=== PATIENT | male | born 1970 | race Caucasian/White ===

== ENCOUNTER 2021-03-01 09:58 | Outpatient (REF) | payer OTHER, SELFPAY ==
--- NOTE | ~2021-03-01 | CT_ITS ---
EXAMINATION: CT HEAD WITHOUT CONTRAST CLINICAL INFORMATION: Unspecified intracranial injury with loss of consciousness COMPARISON: None TECHNIQUE: Contiguous axial imaging was performed from the skull base to vertex without intravenous administration of contrast. This CT examination was performed using dose optimization techniques as appropriate, variously including the following: *Automated exposure control *Adjustment of mA and/or kV according to patient size (this includes techniques or standardized protocols for targeted exams where dose is matched to indication/reason for exam; i.e. extremities or head) *Use of iterative reconstruction technique DLP: 805 mGy-cm FINDINGS: There is no evidence of an extra-axial collection. There are 2 small areas of increased attenuation in the periventricular white matter of the left frontal lobe near the frontal horn of the left lateral ventricle measuring 2 mm axial image 32 and 3 mm axial image 39 series 4. Appearance is questionable for possible small areas of intraparenchymal hemorrhage. No other evidence of intra-axial or extra-axial hemorrhage is seen. The ventricles and extra-axial CSF spaces are appropriate. Mclaughlin-white matter differentiation is normal and no mass, mass effect or infarct is seen. Review at bone windows demonstrates no skull fracture. There are mild inflammatory changes seen in the left frontal, ethmoid and sphenoid sinuses. CT/CT head/brain wo con IMPRESSION: Two small 2 and 3 mm foci of increased attenuation in the periventricular white matter of the left frontal lobe questionable for small areas of intraparenchymal hemorrhage. This finding could be confirmed with brain MRI clinically indicated. Alternatively, short-term follow-up head CT could be considered. Findings will be communicated by the [facility] work flow mental health social worker Josephine Nagel.
== END 2021-03-01 09:59 | disposition home or self-care (01) ==
LOC: HO.CT 09:58
PROVIDERS: PCP Nurse Practitioner Family; Visit Provider Nurse Practitioner Family
DX: S06.9X9A Unspecified intracranial injury with loss of consciousness of unspecified duration, initial encounter (principal)
CPT/HCPCS: 70450

== ENCOUNTER → 2021-05-08 09:34 | Outpatient (REF) | payer OTHER, SELFPAY ==
--- NOTE | 2021-05-08 09:43 | CA_ITS ---
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 Symptoms: R01.1 - Cardiac murmur, unspecified Study Quality: Fair ECG Rhythm: Sinus Conclusions: - The left ventricular systolic function is normal. The calculated ejection fraction is 60% by biplane method. - Possibly bicuspid aortic valve with fusion of left and right cusps. - There is moderate aortic valve stenosis. Findings Left Ventricle Normal left ventricular cavity size. There is mildly increased left ventricular wall thickness. The left ventricular systolic function is normal. The calculated ejection fraction is 60% by biplane method. There is no evidence of regional wall motion abnormalities. Diastolic function is normal for age. Right Ventricle Normal right ventricular cavity size and systolic function. Atria The left atrium is mildly dilated. The right atrium is normal in size. Aortic Valve There is moderate calcification of the aortic valve. There is moderate aortic valve stenosis. The peak aortic gradient is 57 mmHg.The mean gradient is 29 mmHg. The aortic valve area is 1.26 cm2. Possibly bicuspid aortic valve with fusion of left and right cusps. Mitral Valve The mitral valve appears normal. There is trace mitral valve regurgitation. There is no mitral valve stenosis. Pulmonic Valve The pulmonic valve was not well visualized. Tricuspid Valve Normal tricuspid valve structure. There is trace tricuspid valve regurgitation. The pulmonary artery systolic pressure is normal. Great Vessels The aortic annulus, sinuses of valsalva, and asc aorta are normal in size. Venous The inferior vena cava is normal in size and collapses greater than 50% with inspiration. Pericardium/Pleural There is no evidence of pericardial effusion. Prior Study Comparison No prior study available for comparison. Measurements 2D Linear Measurements IVSd: 1.11 0.6-0.9/0.6-1.0 cm LVIDd: 4.80 3.9-5.3/4.2-5.9 cm LVIDd Index: 2.33 2.4-3.2/2.2-3.1 cm/m2 LVIDs: 2.86 2.0-3.6 cm LVPWd: 1.07 0.7-1.1 cm Ao Root: 3.60 2.1-3.5 cm LA Diam: 3.60 2.7-3.8/3.0-4.0 cm LAIDs Index: 1.75 1.5-2.3 cm/m2 LV Mass: 238.66 67-162/88-224 g LV Mass Index: 115.85 43-95/49-115 g/m2 LVOT Diam: 2.30 3.0+(-)1.3 cm 2D Systolic Function EF 4C: 60.80 >55% EF 2C: 59.10 >55% EF BiP: 59.70 >55% Mitral Valve MV Pk E: 0.71 MV PK A: 0.79 MV Decel Time: 196.00 E/A: 0.90 E'Lateral: 7.83 E'Medial: 9.25 E/E' Med: 7.60 E/E' Lat: 9.00 PHT: 57.00 MVA PHT: 3.86 Decel Throckmorton: 3.61 Aortic Valve AoV Pk Jeremy: 3.79 AoV Mn Jeremy: 2.53 AoV VTI: 0.83 AoV Pk Grad: 57.00 Aov Mn Grad: 29.00 ALMA Cont.VTI: 1.26 LVOT LVOT Pk Jeremy: 1.04 LVOT Mn Jeremy: 0.73 LVOT VTI: 0.25 LVOT Pk Grad: 4.00 LVOT Mn Grad: 3.00 LVOT Diam: 2.30 LVOT Area: 4.15 Diastolic Function MV Pk E: 0.71 MV Pk A: 0.79 E/A: 0.90 E'Medial: 9.25 E/E' Med: 7.60 E' Laterial: 7.83 E/E' Lat: 9.00 Right Ventricle TAPSE (mm): 23.00 TVS' Jeremy: 13.40 Tricuspid Valve TR Pk Jeremy: 1.52 TR Pk Grad: 9.00 RA Press: 3.00 RVSP: 12.00 Great Vessels Aorta Ao Root-2D: 3.60 2.0-3.7 cm Ao Asc: 3.30 2.1-3.4 cm Ao Arch: 3.00 Updated in Other Vendor System with Status of Final Morales Bolden MD electronically signed on 05/08/2021 12:55:09 PM with status of Final
== END ==
LOC: HO.CARD 09:34
PROVIDERS: PCP Nurse Practitioner Family; Visit Provider Nurse Practitioner Family
DX: R01.1 Cardiac murmur, unspecified (principal)
CPT/HCPCS: 93306

== ENCOUNTER 2021-05-22 10:19 | Outpatient (REF) | payer OTHER, SELFPAY ==
--- NOTE | ~2021-05-22 | CT_ITS ---
EXAMINATION: CT HEAD WITHOUT CONTRAST CLINICAL INFORMATION: Unspecified fracture of the occiput. COMPARISON: CT brain 03/01/2021. TECHNIQUE: Contiguous axial imaging was performed from the skull base to vertex without intravenous administration of contrast. This CT examination was performed using dose optimization techniques as appropriate, variously including the following: *Automated exposure control *Adjustment of mA and/or kV according to patient size (this includes techniques or standardized protocols for targeted exams where dose is matched to indication/reason for exam; i.e. extremities or head) *Use of iterative reconstruction technique DLP: 715 mGy-cm FINDINGS: There is no evidence of acute intracranial hemorrhage or territorial infarction. No abnormal mass effect or midline shift is seen. There are 2 punctate calcifications in the left deep frontal lobe measuring 3 mm axial image 111/5 and 3 mm on axial image 134/5 adjacent to the frontal horn of left lateral ventricle. Mclaughlin to white matter differentiation is well preserved. No extra-axial fluid collections are identified. The ventricles are normal in size. There is no abnormal attenuation within the brain parenchyma. The osseous structures and soft tissues are normal. The mastoid air cells and visualized portions of the paranasal sinuses are well aerated. CT/CT head/brain wo con IMPRESSION: No acute intracranial process seen. No major change from previous exam 03/02/2021.
== END 2021-05-22 10:20 | disposition home or self-care (01) ==
LOC: HO.CT 10:19
PROVIDERS: PCP Nurse Practitioner Family; Visit Provider Nurse Practitioner Family
DX: S06.9X9A Unspecified intracranial injury with loss of consciousness of unspecified duration, initial encounter (principal); S02.119A Unspecified fracture of occiput, initial encounter for closed fracture
CPT/HCPCS: 70450

== ENCOUNTER → 2021-07-11 08:42 | Outpatient (BNVA) | payer OTHER, SELFPAY | PROVIDERS: PCP Nurse Practitioner Family; Referring Provider Nurse Practitioner Family; Visit Provider Internal Medicine Cardiovascular Disease | DX: I35.0 Nonrheumatic aortic (valve) stenosis (principal) | CPT/HCPCS: 93005 ==

== ENCOUNTER 2022-11-19 10:51 | Outpatient (AMB) | payer OTHER, SELFPAY ==
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
[2022-11-19 11:02] VITALS: BP 122/62; PULSE 68; O2SAT 98; BMI 34.1
== END 2022-11-19 11:37 | disposition home or self-care (01) ==
PROVIDERS: Visit Provider Psychiatry & Neurology Neurology
DX: G44.309 Post-traumatic headache, unspecified, not intractable (principal); S09.90XS Unspecified injury of head, sequela; R06.83 Snoring; F32.A Depression, unspecified; M54.2 Cervicalgia; G47.10 Hypersomnia, unspecified
CPT/HCPCS: 99204

== ENCOUNTER → 2022-11-19 10:51 | Outpatient (BNVA) | payer OTHER, SELFPAY | PROVIDERS: Visit Provider Psychiatry & Neurology Neurology ==

== ENCOUNTER 2023-01-28 08:33 | Outpatient (AMB) | payer OTHER, SELFPAY ==
--- NOTE | 2023-01-28 08:36 | MHC.PC.OV ---
Vital Signs 01/28/23 08:37 Height 5 ft 7 in Weight 228 lb 4 oz BMI 35.7 BP 120/82 Blood Pressure Location Rt brachial Position Sitting Pulse 68 Pulse Source Pulse Oximeter Pulse Oximetry (%) 98 Oxygen Delivery Method Room Air Intake Visit Reasons: 6 month follow up concussion Allergies No Known Allergies Allergy (Verified 01/28/23 08:39) Medication List - Last Reconciled 01/28/23 by VINNIE Gaytan aspirin (Ecotrin Low Strength) 81 mg PO DAILY baclofen 5 mg PO BEDTIME magnesium oxide 400 mg PO BEDTIME sildenafil 50 mg PO DAILY PRN 10 days Tobacco use date assessed: 01/28/23 Dental Screening Dental Screen Date: 01/28/23 Did you have a dental visit in the last 12 months?: Yes Did you have a dental problem in the last 6 months where you did not have access to dental care?: No Was dental information given to patient?: Patient has dentist HPI 6 month follow up concussion HPI Details TBI (Jan 2021). headaches, left occipital/paretial region. Headaches are very random, denies any aura, reports lasting half hr or so. He further reports memory loss, photophobia, and sonophobia. Pt is currently seeing a neurologist. I will refer for neuro-psych testing for further eval and possible treatment. Pt reports a skin lesion to his right calf and left occipital region. Will refer to derm. Denies fever, chills, and blurred vision. 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 Hypersomnia Snoring Cervicalgia Concussion Fracture of occipital bone of skull with loss of consciousness Subarachnoid bleed Hypertension Family History Mother Cancer Father HTN (hypertension) Social History Housing: House Alcohol intake: current Patient Tobacco Use Status: Former Tobacco user Years Smoked: 20 e-Cigarette/Vaping Use: Never Used Second Hand Smoke Exposure: No Substance Use Type: Marijuana service: No Current occupational status: employed 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 Mitul Tucker, Bridgett Obregon, Malcom Aguayo and colleagues, with an educational marv from [employer]. Review of Systems Const Reports as per HPI Physical exam (Primary Care) Vital Signs: Last Vital Signs Pulse 68 01/28/23 08:37 BP 120/82 01/28/23 08:37 Pulse Ox 98 01/28/23 08:37 Oxygen Delivery Method Room Air 01/28/23 08:37 BMI result Body Mass Index 35.7 Tobacco/Smoking Status: Tobacco use Status Tobacco use date assessed 01/28/23 01/28/23 08:42 Patient Tobacco Use Status Former Tobacco user 01/28/23 08:36 e-Cigarette/Vaping Use Never Used 01/28/23 08:36 Thrive Assessment: Date of Thrive Assessment Date Thrive assessed 07/25/22 01/28/23 08:36 Const General: cooperative Nutritional Appearance: obese Resp Effort & Inspection: normal respiratory effort Auscultation: clear to auscultation bilaterally Cardio Rate: regular rate Rhythm: regular rhythm Heart sounds: S1 normal heart sound present, S2 normal heart sound present and Murmur heart sound present systolic Skin Other: round skin-colored papular ? mole to right calf, skin colored lesion to left occipital aspect of head Neuro Other: neg romberg, heel to han intact, neg arm pull test, able to tandem walk, no nystagmus with 6 cardinal gazes Cranial nerves: Yes CN's II-XII intact bilaterally Motor exam (neuro): 5/5 motor strength present throughout Coordination: [id number] test normal Romberg Test: Negative Psych Appearance: grossly normal Mental Status: mental status grossly normal Speech and movement: Normal speech and movement present Affect: normal affect Attitude: cooperative Thought process: Normal thought process present Thought content: Normal thought content present Insight: Good insight present (Psych) Judgement: Good judgement present (Psych) Assessment and Plan Assessment & Plan (1) Headaches due to old head injury: Comment: Head injury with LOC and subarachnoid hemorrhage in 2020 Code(s): G44.309 - Post-traumatic headache, unspecified, not intractable; S09.90XS - Unspecified injury of head, sequela Plan: Referred to neuropsych (2) TBI (traumatic brain injury): Code(s): S06.9X9A - Unspecified intracranial injury with loss of consciousness of unspecified duration, initial encounter Plan: Referred to neuropsych (3) Fracture of occipital bone of skull with loss of consciousness: Code(s): S02.119A - Unspecified fracture of occiput, initial encounter for closed fracture; S06.9X9A - Unspecified intracranial injury with loss of consciousness of unspecified duration, initial encounter Plan: Referred to neuropsych (4) Subarachnoid bleed: Code(s): I60.9 - Nontraumatic subarachnoid hemorrhage, unspecified Plan: Referred to neuropsych (5) Skin lesion: Code(s): L98.9 - Disorder of the skin and subcutaneous tissue, unspecified Plan The patient agreed to the use of a medical staff specialist for this encounter. Scribed for NADYA Jules-BC by Loni Silveira medical staff specialist, on 01/28/2023 at 08:50 EST Orders: Referrals Neuropsychiatry Referral G44.309 - Post-traumatic headache, unspecified, not intractable, I60.9 - Nontraumatic subarachnoid hemorrhage, unspecified, S02.119A - Unspecified fracture of occiput, initial encounter for closed fracture, S06.9X9A - Unspecified intracranial injury with loss of consciousness of unspecified duration, initial encounter, S09.90XS - Unspecified injury of head, sequela Dermatology Referral L98.9 - Disorder of the skin and subcutaneous tissue, unspecified Medications: Changed From baclofen 5 mg PO BEDTIME 30 tabs 3RF To baclofen 5 mg PO BEDTIME Coding Level of Care Code Est Pt Level 3 (22998) Diagnoses Headaches due to old head injury G44.309; S09.90XS TBI (traumatic brain injury) S06.9X9A Fracture of occipital bone of skull with loss of consciousness S02.119A; S06.9X9A Subarachnoid bleed I60.9 Skin lesion L98.9
[2023-01-28 08:37] VITALS: BP 120/82; PULSE 68; O2SAT 98; BMI 35.7
== END 2023-01-28 09:16 | disposition home or self-care (01) ==
PROVIDERS: Visit Provider Nurse Practitioner Family
DX: G44.309 Post-traumatic headache, unspecified, not intractable (principal); S06.9X9A Unspecified intracranial injury with loss of consciousness of unspecified duration, initial encounter; S02.119A Unspecified fracture of occiput, initial encounter for closed fracture; L98.9 Disorder of the skin and subcutaneous tissue, unspecified
CPT/HCPCS: 99213

== ENCOUNTER 2023-03-11 08:59 | Outpatient (AMB) | payer OTHER, SELFPAY ==
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
[2023-03-11 09:04] VITALS: BP 122/78; PULSE 76; RESP 15; O2SAT 96; BMI 36.1
== END 2023-03-11 09:25 | disposition home or self-care (01) ==
PROVIDERS: PCP Nurse Practitioner Family; Visit Provider Psychiatry & Neurology Neurology
DX: G44.309 Post-traumatic headache, unspecified, not intractable (principal); S09.90XS Unspecified injury of head, sequela; R06.83 Snoring; F32.A Depression, unspecified; M54.2 Cervicalgia; G47.10 Hypersomnia, unspecified
CPT/HCPCS: 99214

== ENCOUNTER → 2023-03-11 08:59 | Outpatient (BNVA) | payer OTHER, SELFPAY | PROVIDERS: PCP Nurse Practitioner Family; Visit Provider Psychiatry & Neurology Neurology | DX: M54.2 Cervicalgia (principal); R06.83 Snoring; G47.10 Hypersomnia, unspecified; F32.A Depression, unspecified; S09.90XS Unspecified injury of head, sequela ==

== ENCOUNTER 2023-04-29 12:43 | Outpatient (REF) | payer OTHER, SELFPAY ==
--- NOTE | ~2023-04-29 | XR_ITS ---
EXAMINATION: XR CERVICAL SPINE CLINICAL INFORMATION: Cervicalgia COMPARISON: None available. TECHNIQUE: Frontal, lateral, open-mouth and swimmer's views views of the cervical spine were obtained. FINDINGS: There is no prevertebral soft tissue swelling. Vertebral body height and alignment are maintained. Degenerative disc disease is evident at C5-C6 and C6-C7 with prominent anterior and posterior osteophytes. The odontoid process is intact. XR/XR cervical spine 3V IMPRESSION: Degenerative disc disease at C5-C6 and C6-C7.
== END 2023-04-29 12:44 | disposition home or self-care (01) ==
LOC: HO.XRAY 12:43
PROVIDERS: PCP Nurse Practitioner Family; Visit Provider Psychiatry & Neurology Neurology
DX: M54.2 Cervicalgia (principal)
CPT/HCPCS: 72040

== ENCOUNTER 2023-05-21 11:00 | Outpatient (RCR) | payer OTHER, SELFPAY ==
--- NOTE | 2023-05-07 12:03 | MHC.PT.EP ---
[facility] [place] Office [place] Office [place] Office [address] Kathya Kee [address] [phone] F: [phone] F: [phone] F: [phone] F: [phone] Physical Therapy Plan of Care Date of Evaluation: 05/07/23 Date of Surgery: Diagnosis: cervicalgia Assessment: Patient is a 53 year old R handed male who presents with s/s consistent with cervicalgia, neck pain. 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 Patient past medical history includes head injury with resultant s/s. Current impairments include pain, posture, ROM, strength, activity tolerance and functional mobility. Functional limitations include decreased ability to use UE for strenuous activities, turn head, sleep and concentrate. He has frequent BRISCOE. Patient is motivated with good rehab potential. Skilled PT will address impairments and functional limitations in order to achieve goals. Frequency and Duration: The patient will be seen 2x/week for 5 weeks Short Term Goals: I with HEP - 2 weeks AROM rotation 58 b/l - 3 weeks Pain with ADLs 3/10 max - 3 weeks [employer] Goals: NPDI 20% or less - 5 weeks AROM ext to 38, rotation to 64 b/l - 5 weeks Reduced L LS /UT tissue tension, TTP absent - 5 weeks Treatment Plan: Modalities to reduce pain, spasms and effusion. Manual therapy to restore motion and function. Therapeutic exercise to improve strength and flexibility. Neuromuscular re-education for posture and balance. Therapeutic activities to return to functional activities of daily living. Electronically signed by: Yusuf De Los Santos, PT Please sign and return to therapist. Thank you for your referral.
--- NOTE | 2024-01-28 10:28 | MHC.PT.DC ---
[facility] [place] Office [place] Office [place] Office [address] Kathya Kee [address] [phone] F: [phone] F: [phone] F: [phone] F: [phone] Physical Therapy Discharge Report Diagnosis: cervicalgia Date of Surgery: Date of Evaluation: 05/07/23 Date of Discharge: 05/23/23 Treatments to Date: 4 Cancellations to Date: No Shows to Date: Discharge Status: Independent with HEP Discharge Summary: 05/21/23: pt has been feeling better overall with skilled PT. reduced tissue tension reduced BRISCOE, less pain with work. continue to progress as tolerated. traveling for golf next week. 05/15/23: pt progressing well overall. updated HEP. no adverse reactions. reduced tissue tension. 05/13/23: progressed with postural intervention. edu given. pt follows commands well and understood postural edu. assess response and progress as tolerated. Patient is a 53 year old R handed male who presents with s/s consistent with cervicalgia, neck pain. 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 Patient past medical history includes head injury with resultant s/s. Current impairments include pain, posture, ROM, strength, activity tolerance and functional mobility. Functional limitations include decreased ability to use UE for strenuous activities, turn head, sleep and concentrate. He has frequent BRISCOE. Patient is motivated with good rehab potential. Skilled PT will address impairments and functional limitations in order to achieve goals. Electronically signed by: Yusuf De Los Santos, PT Please sign and return to therapist. Thank you for your referral.
== END 2024-01-28 10:28 | disposition home or self-care (01) ==
LOC: HO.PTCHIC 11:00
PROVIDERS: PCP Nurse Practitioner Family; Visit Provider Psychiatry & Neurology Neurology
DX: M54.2 Cervicalgia (principal)
CPT/HCPCS: 97110; 97140; 97162

== ENCOUNTER 2023-06-25 10:45 | Outpatient (AMB) | payer OTHER, SELFPAY ==
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
[2023-06-25 11:08] VITALS: BP 124/70; PULSE 76; O2SAT 96; BMI 36.3
== END 2023-06-25 11:29 | disposition home or self-care (01) ==
PROVIDERS: PCP Nurse Practitioner Family; Visit Provider Nurse Practitioner Family
DX: G44.309 Post-traumatic headache, unspecified, not intractable (principal); S09.90XS Unspecified injury of head, sequela; R06.83 Snoring; F32.A Depression, unspecified; M54.2 Cervicalgia; G47.10 Hypersomnia, unspecified
CPT/HCPCS: 99214

== ENCOUNTER → 2023-06-25 10:45 | Outpatient (BNVA) | payer OTHER, SELFPAY | PROVIDERS: PCP Nurse Practitioner Family; Visit Provider Nurse Practitioner Family ==

== ENCOUNTER 2024-06-16 12:55 | Outpatient (AMB) | payer OTHER, SELFPAY ==
--- NOTE | 2024-06-16 13:13 | A.OFFPC_ITS ---
Vital Signs 06/16/24 13:17 Height 5 ft 7 in Weight 232 lb BMI 36.3 BP 136/86 Blood Pressure Location Lt brachial Position Sitting Respiration 20 Pulse 80 Pulse Source Pulse Oximeter Temp 98.4 F Temp Source Oral Pulse Oximetry (%) 98 Oxygen Delivery Method Room Air Intake Visit Reasons: Med Review F/U Allergies No Known Allergies Allergy (Verified 06/16/24 13:13) Medication List - Last Reconciled 06/16/24 by NADYA Gaytan-YOGI ammonium lactate 12% 1 appl topical BID aspirin (Ecotrin Low Strength) 81 mg PO DAILY baclofen 10 mg PO BEDTIME magnesium oxide 400 mg PO BEDTIME sildenafil 50 mg PO DAILY PRN 10 days Tobacco use date assessed: 06/16/24 Dental Screening Dental Screen Date: 06/16/24 Did you have a dental visit in the last 12 months?: Yes Did you have a dental problem in the last 6 months where you did not have access to dental care?: No Was dental information given to patient?: Patient has dentist HPI Med Review F/U HPI Details Chief Complaint The patient presents with shortness of breath and chest pain. History of Present Illness The patient is a 54 year old male presenting with shortness of breath and chest pain. He has a known history of a systolic heart murmur and mitral valve stenosis. His last echocardiogram was conducted in 2021, remaining asymptomatic since then with clear lung sounds and no edema noted. There have been no interventions or notable changes in his condition prior to today's presentation. A repeat echocardiogram has been planned to reassess his cardiovascular status. 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 Social History Health Maintenance - Scheduled repeat echocardiogram for [facility] evaluation Review of Systems - Cardiovascular: Reports shortness of b reath and chest pain - Neurological: Reports headache and juan carlos rred vision Physical Exam General: Cooperative, healthy appearing, comfortable, no acute distress and well developed Orientation: Patient oriented x3 Limitations: No limitations Head: Normal to inspection Ears: Hearing grossly normal bilaterally Nose: Normal external nose present Face and sinus: Normal facial exam Eyes: Appearance normal, both eyes and all related structures Neck: Normal visual inspection and Yes full ROM Respiratory: Normal respiratory effort and able to speak in complete sentences. Clear to auscultation bilaterally Cardiovascular: Regular rate and rhythm. Systolic murmur present. Normal S1 and S2 GI: Normal to inspection. Soft to palpation and nontender Skin: No rashes or lesions noted Neuro: Patient oriented x3 Extremities: Normal to inspection Results - Past echocardiogram performed in 2021 Plan I have planned a repeat echocardiogram to assess for progression in the patient's heart murmur and mitral valve stenosis. This will aid in determining the current status of his cardiac issues and the presence of any necessary interventions. Regular monitoring is important given his stable but chronic condition. Discussion Notes I discussed with the patient the continuation of monitoring his mitral valve stenosis through a scheduled echocardiogram. We went over the importance of this test to assess for any potential progression in his symptoms or condition, emphasizing it as part of his ongoing cardiac health management. The patient has not demonstrated new significant symptoms beyond today's presentation, and he agreed to proceed with the scheduled evaluation. Patient Instructions - Schedule and attend the repeat echocar diogram as planned. - Monitor for any worsening symptoms suc h as increased shortness of breath, chest pain, or swelling, and seek care if these occur. - Continue with current medications unle ss directed otherwise. 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 1. Little interest or pleasure in doing things: not at all 2. Feeling down, depressed, or hopeless: several days 3. Trouble falling or staying asleep, or sleeping too much: several days 4. Feeling tired or having little energy: several days 5. Poor appetite or overeating: several days 6. Feeling bad about yourself - or that you are a failure or have let yourself or your family down: not at all 7. Trouble concentrating on things, such as reading the newspaper or watching television: more than half the days 8. Moving or speaking so slowly that other people could have noticed. Or the opposite - being so fidgety or restless that you have been moving around a lot more than usual: several days 9. Thoughts that you would be better off or of hurting yourself in some way: not at all Total score: 7 Depression Screening Interpretation: Negative Depression Screening Done: Yes 48192 - PHQ-9 Billing: Yes Source: Developed by Drs. Mitul Tucker, Bridgett Obregon, Malcom Aguayo and colleagues, with an educational marv from [employer]. Thrive Questionnaire Date Thrive assessed: 06/16/24 I am a: Patient What is your living situation today?: I have a steady place to live Within the past 12 months, did the food you bought not last and you didn't have the money to get more?: Never true Within the past 12 months, did you worry whether your food would run out before you got money to buy more?: Never true Do you have trouble paying for medicines?: No Do you have trouble getting transportation to medical appointments?: No Do you have trouble paying your heating and electricity bill?: No Do you have trouble taking care of your child, family member or friend?: No Do you have trouble with day-to-day activities such as bathing, preparing meals, shopping, managing finances, etc.?: No Are you currently unemployed and looking for a job?: No Are you interested in more education?: No Please select the resources that you would like help with: None Currently or been in a relationship where the following occur: No concerns reported THRIVE Score: 0 AUDIT C Alcohol Use Questionnaire (AUDIT-C) 1. How often do you have a drink containing alcohol?: 2-3 times a week 2. How many drinks containing alcohol do you have on a typical day when you are drinking?: 5 or 6 3. How often do you have six or more drinks on one occasion?: Monthly Total Score: 7 GERA-7 AMB Questionnaire GERA-7 Date GERA - 7 assessed: 06/16/24 Feeling nervous, anxious, or on edge: 1 = Several days Not being able to stop or control worryin = Several days Worrying too much about different things: 1 = Several days Trouble relaxin = Several days Being so restless that it is hard to sit still: 1 = Several days Becoming easily annoyed or irritable: 1 = Several days Feeling afraid as if something awful might happen: 0 = Not at all Total GERA-7 score (0-4 normal; 5-9 mild; 10-14 moderate; 15-21 severe): 6 Source: Developed by Drs. Mitul Tucker, Bridgett Obregon, Malcom Aguayo and colleagues, with an educational marv from [employer]. GERA-7 Assessment Billing GERA-7 Assessment Tool: GERA-7 Assessment 96460 Physical exam (Primary Care) Vital Signs: Last Vital Signs Temp 98.4 F 06/16/24 13:17 Pulse 80 06/16/24 13:17 Resp 20 06/16/24 13:17 BP 136/86 06/16/24 13:17 Pulse Ox 98 06/16/24 13:17 Oxygen Delivery Method Room Air 06/16/24 13:17 BMI result Body Mass Index 36.3 Tobacco/Smoking Status: Tobacco use Status Tobacco use date assessed 06/16/24 06/16/24 13:15 Patient Tobacco Use Status Former Tobacco user 06/16/24 13:15 e-Cigarette/Vaping Use Never Used 06/16/24 13:15 PHQ-9: PHQ-9 Score PHQ-9: Total score 7 06/16/24 13:15 Depression Screening Interpretation: Negative Thrive Assessment: Date of Thrive Assessment Date Thrive assessed 06/16/24 06/16/24 13:18 Currently or been in a relationship where the following occur: No concerns reported Coding Level of Care Code Est Pt Level 3 (15901) Diagnoses Screening for colon cancer Z12.11 Hypertension I10 Screening PSA (prostate specific antigen) Z12.5 Systolic murmur R01.1 Aortic stenosis I35.0 Cracking skin L98.9 Additional Codes GERA-7 Assessment Billing - GERA-7 Assessment Tool: GERA-7 Assessment 48757 ([id number]) PHQ-9 - 95085 - PHQ-9 Billing: Yes ([id number]) Assessment & Plan Assessment & Plan (1) Screening for colon cancer: Code(s): Z12.11 - Encounter for screening for malignant neoplasm of colon Category: Medical (2) Hypertension: Code(s): I10 - Essential (primary) hypertension Category: Medical Plan: . (3) Screening PSA (prostate specific antigen): Code(s): Z12.5 - Encounter for screening for malignant neoplasm of prostate Category: Medical (4) Systolic murmur: Code(s): R01.1 - Cardiac murmur, unspecified Category: Medical (5) Aortic stenosis: Code(s): I35.0 - Nonrheumatic aortic (valve) stenosis Category: Medical (6) Cracking skin: Code(s): L98.9 - Disorder of the skin and subcutaneous tissue, unspecified Category: Medical Plan . Orders: Orders Complete Blood Count Auto Diff Today I10 - Essential (primary) hypertension Lipid Panel Today I10 - Essential (primary) hypertension Comprehensive Gregory. Panel Fast Today I10 - Essential (primary) hypertension TSH reflex Free T4 Today I10 - Essential (primary) hypertension UA CC w/rflx Micro + Cult Today I10 - Essential (primary) hypertension Prostate Specific Antigen Scr Today Z12.5 - Encounter for screening for malignant neoplasm of prostate CA echo transthoracic complete Today I35.0 - Nonrheumatic aortic (valve) stenosis, R01.1 - Cardiac murmur, unspecified Referrals Gastroenterology Referral Z12.11 - Encounter for screening for malignant neoplasm of colon Dermatology Referral L98.9 - Disorder of the skin and subcutaneous tissue, unspecified Medications: New ammonium lactate 12% 1 appl topical BID 140 grams 0RF ammonium lactate 12% 1 appl topical BID 140 grams 0RF
[2024-06-16 13:17] VITALS: BP 136/86; PULSE 80; RESP 20; TEMP 36.9; O2SAT 98; BMI 36.3
--- OUTSIDE RECORDS SUMMARY | 2024-06-16 15:52 | XMS_ITS | Continuity of Care Document ---
Author Organization [facility]. 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 Role Phone Unavailable Unavailable Unavailable Unavailable Unavailable Unavailable Unavailable Unavailable Unavailable Unavailable Unavailable Problems Fracture of skull Onset:27-Jan-2021 Sarah Quan DO Hemorrhage into subarachnoid space of neuraxis Onset:27-Jan-2021 Sarah Quan DO Alcohol intoxication Onset:27-Jan-2021 Sarah Quan DO Mental Status Cognitive function finding 27-Jan-2021 Allergies and Adverse Reactions No Known Allergies(Allergy) Onset: 27-Jan-2021 Medications ondansetron 2 MG/ML Injectable Solution [Zofran];4 MILLIGRAM INTRAVENOUS Q3HR PRN Quantity:1 KROMA Start:28-Jan-2021 Status:Discontinued Comments:[id number] Administration Instructions:[facility] [id number] acetaminophen 325 MG / butalbital 50 MG / caffeine 40 MG Oral Tablet;1 TABLET PO Q4HR PRN Start:28-Jan-2021 Comments:1 TAB PO Q4HR PRN As Needed for headache oxyCODONE hydrochloride 5 MG Oral Tablet;5 MILLIGRAM PO Q4H Start:28-Jan-2021 Comments:5 MG PO Q4H acetaminophen 325 MG Oral Tablet;650 MILLIGRAM PO Q6HR Start:28-Jan-2021 Comments:650 MG PO Q6HR As Needed for HEADACHE levETIRAcetam 500 MG Oral Tablet;500 MILLIGRAM PO BID Start:28-Jan-2021 Comments:500 MG PO BID ondansetron 4 MG Oral Tablet [Zofran];4 MILLIGRAM PO Q4HR PRN Start:28-Jan-2021 Comments:4 MG PO Q4HR PRN levETIRAcetam 500 MG Oral Tablet;500 MILLIGRAM ORAL BID Quantity:1 ISNST Start:27-Jan-2021 Status:Discontinued Comments:[id number] Administration Instructions:DO NOT CHEW OR CRUSH sodium chloride 9 MG/ML Injectable Solution;[id number] Administration Instructions:Doses < or equal to 2000 mg,IV push with equal amount ofdiluent, infuse over 5 minutesDoses > 2000 mg, IV piggyback,infuse over 15 minutes KROMA Start:27-Jan-2021 Status:Discontinued Comments:[id number] Administration Instructions:Doses < or equal to 2000 mg,IV push with equal amount ofdiluent, infuse over 5 minutesDoses > 2000 mg, IV piggyback,infuse over 15 minutes sodium chloride 9 MG/ML Injectable Solution;1 IV FLUSH INTRAVENOUS BID Quantity:1 KROMA Start:27-Jan-2021 Status:Discontinued Comments:[id number] Administration Instructions:Flush each PERIPHERAL IV port with 3-10 mlSodium Chloride 0.9% (NS) and each CENTRAL IVport with 10-20 ml NS.Refer to protocol for more information. 1 ML hydrALAZINE hydrochloride 20 MG/ML Injection;5 MILLIGRAM INTRAVENOUS Q4HR PRN Quantity:1 KROMA Start:27-Jan-2021 Status:Discontinued Comments:[id number] acetaminophen 325 MG Oral Tablet;650 MILLIGRAM ORAL Q6HR Quantity:2 KROMA Start:27-Jan-2021 Status:Discontinued Comments:[id number] Administration Instructions:Monitor TOTAL (PO/AK/IV) APAP administration.Max dose in normal adult is 4gm APAP in 24 hours. sodium chloride 9 MG/ML Injectable Solution KROMA Start:27-Jan-2021 Status:Discontinued sodium chloride 9 MG/ML Injectable Solution;1 IV FLUSH INTRAVENOUS PRN Quantity:1 KROMA Start:27-Jan-2021 Status:Discontinued Comments:[id number] Administration Instructions:Flush each PERIPHERAL IV port with 3-10 mlSodium Chloride 0.9% (NS) and each CENTRAL IVport with 10-20 ml NS.Refer to protocol for more information. ondansetron 2 MG/ML Injectable Solution [Zofran];Provider Administration Instructions:[facility] [id number] Quantity:1 Sarah Quan DO Start:27-Jan-2021 Status:Discontinued Comments:Provider Administration Instructions:[facility] [id number] Social History Smoking Status Tobacco smoking consumption unknown Recorded: Jan-2021
== END 2024-06-16 13:44 | disposition home or self-care (01) ==
PROVIDERS: PCP Nurse Practitioner Family; Visit Provider Nurse Practitioner Family
DX: Z12.11 Encounter for screening for malignant neoplasm of colon (principal); I10 Essential (primary) hypertension; Z12.5 Encounter for screening for malignant neoplasm of prostate; R01.1 Cardiac murmur, unspecified; I35.0 Nonrheumatic aortic (valve) stenosis; L98.9 Disorder of the skin and subcutaneous tissue, unspecified

== ENCOUNTER → 2024-06-16 12:55 | Outpatient (BNVA) | payer OTHER, SELFPAY | PROVIDERS: PCP Nurse Practitioner Family; Visit Provider Nurse Practitioner Family | DX: I10 Essential (primary) hypertension (principal); R01.1 Cardiac murmur, unspecified; I35.0 Nonrheumatic aortic (valve) stenosis; L98.9 Disorder of the skin and subcutaneous tissue, unspecified | CPT/HCPCS: 96127 ==

== ENCOUNTER 2024-11-19 11:06 | Outpatient (REF) | payer OTHER, SELFPAY ==
[2024-11-19 11:29] LABS: MANUAL DIFF FLAG NO
[2024-11-19 12:20] LABS: Appearance Urine Clear; Glucose Urine UA Negative (Negative); PH 5.5 (5.0-9.0); Specific Gravity - Urine 1.025 (1.005-1.025)
[2024-11-19 12:22] LABS: Hematocrit 44.9 % (42.0-52.0); Hemoglobin 15.3 g/dl (14.0-18.0); Imm Gran Abs Auto 0.01 X10*3/uL (0.00-0.03); Imm Gran Pct Auto 0.1 % (0.0-0.4); Lymphocytes Absolute Auto 2.0 X10*3/uL (1.2-4.9); Mean Corpuscular HGB Conc 34.1 g/dl (31.0-36.0); Mean Corpuscular Hemoglobin 30.3 pg (27.0-33.0); Mean Corpuscular Volume 88.9 fL (80.0-98.0); NRBC Abs Auto 0.000 X10*3/uL (0.0-0.012); NRBC Pct Auto 0.0 /100WBC (0.0-0.2); Platelet Count 286 X10*3/uL (160-400); Red Blood Count 5.05 X10*6/uL (4.60-5.80); White Blood Count 7.2 X10*3/uL (4.8-10.8)
[2024-11-19 13:16] LABS: Alanine Aminotransferase 27 U/L (0-40); Albumin Level 4.7 g/dL (3.5-5.0); Alkaline Phosphatase 49 U/L (39-117); Anion Gap 12 (12-20); Aspartate Amino Transferase 28 U/L (5-37); Blood Urea Nitrogen 18 mg/dL (9-16); Calcium 9.0 mg/dL (8.4-10.2); Carbon Dioxide 24 mmol/L (22-29); Chloride 107 mmol/L (96-108); Cholesterol 360 mg/dL (<200); Estimated Glomerular Filt Rate > 60; HDL Cholesterol 57 mg/dL (>40); Potassium 4.4 mmol/L (3.3-5.1); Sodium 139 mmol/L (135-145); Total Protein 7.3 g/dL (6.5-8.0); Triglycerides 81 mg/dL (<150)
== END 2024-11-19 11:07 | disposition home or self-care (01) ==
LOC: HO.LAB 11:06
PROVIDERS: PCP Nurse Practitioner Family; Visit Provider Nurse Practitioner Family
DX: I10 Essential (primary) hypertension (principal); Z12.5 Encounter for screening for malignant neoplasm of prostate
CPT/HCPCS: 36415; 80053; 80061; 81003; 84153; 84443; 85025